=== PATIENT | female | born 2000 | race Asian ===

== ENCOUNTER 2021-11-18 23:08 | Emergency (ER) | payer OTHER, SELFPAY ==
[2021-11-18 23:23] VITALS: BP 93/47; BP 98/50; PULSE 90; PULSE 95; RESP 16; TEMP 36.5; O2SAT 98; O2SAT 99; BMI 21.2
--- NOTE | 2021-11-18 23:39 | ED.ALCOHOL ---
HPI - Alcohol General Chief Complaint: ETOH/Substance Use Stated Complaint: etoh Time Seen by Provider: 11/18/21 23:30 Source: patient Mode of arrival: EMS Limitations: no limitations History of Present Illness HPI narrative: 21-year-old female who presents emergency department for evaluation of altered mental status. The patient apparently was at a dance [employer]. She states she drained a lot of alcohol and took an edible. Apparently she had multiple episodes of vomiting and had a syncopal episode on the dance floor. The patient was then transport to the emergency department by ambulance. At the time of my evaluation, the patient is somnolent but arousable, she does answer questions. She did tell me that she drink alcohol into an edible. She has no other complaints. She denies using any other drugs. Related Data Allergies Allergy/AdvReac Type Severity Reaction Status Date / Time No Known Allergies Allergy Verified 11/18/21 23:31 Review of Systems Review of Systems: Yes all other systems are reviewed and are negative [facility] Past Medical History [facility] Narrative: Past medical history: None. Past surgical history: None. Social history: Patient is a student. She does admit to drinking alcohol and taking edible. She denies any other drug use. Social History Social History Patient : No Physical Exam ED Vital Signs: Vital Signs - 24 hr 11/18/21 23:23 11/19/21 00:29 Temperature 97.7 F 97.9 F Pulse Rate 95 91 Respiratory Rate 16 17 Blood Pressure 93/47 L 92/44 L Pulse Oximetry 98 100 BMI result Body Mass Index 21.2 Const Other: Somnolent but arousable female patient, she does answer questions appropriately, she does not appear to be in distress [facility] Head: Yes normal to inspection, Yes normocephalic and Yes atraumatic Ears: external ears normal General nose exam: Normal external nose present Face and sinus: Yes normal facial exam Mouth: Normal oral and palatal mucosa present Throat: Yes posterior oropharynx normal Eyes General: appearance normal, both eyes and all related structures Pupils: Equal, round and reactive pupils present Neck Neck: Yes normal visual inspection, Yes no lymphadenopathy, Yes trachea midline and Yes supple Chest Chest palpation & inspection: normal inspection of the chest and normal palpation of entire chest wall Resp Effort & Inspection: normal respiratory effort and able to speak in complete sentences Auscultation: clear to auscultation bilaterally Cardio Rate: regular rate Rhythm: regular rhythm Heart sounds: S1 normal heart sound present, S2 normal heart sound present and no murmurs GI Inspection: Yes normal to inspection Palpation (GI): Soft to palpation, nontender and no guarding Auscultation: normal bowel sounds General: Yes no CVA tenderness Back/Spine/Pelvis Back: no CVA tenderness Skin General skin exam: no rashes or lesions noted Neuro Cranial nerves: Yes CN's II-XII intact bilaterally and Yes Equal, round and reactive pupils present Cognition (Neuro): normal cognition Motor exam (neuro): 5/5 motor strength present throughout Extrem General: Yes normal to inspection Psych Other: Somnolent but arousable, Course Course Course Narrative: 21-year-old female who was at a dance democr[employer], she admits to drinking alcohol taking an edible. It was reported that she had a syncopal episode and multiple episodes of vomiting. Vital signs blood pressure 93/47 otherwise unremarkable. O2 saturation was 90% on room air. Physical examination is consistent with intoxication. The patient was placed on a utility worker driver and pulse oximetry monitor. Laboratory evaluation was ordered. Patient was ordered to get normal saline IV x1 L and Zofran 4 mg IV for her nausea and vomiting. Patient will be kept in the emergency department until she is sober. 0154: Laboratory evaluation: Ethanol level was 17, CMP was normal, WBC elevated 13,100, anemia with an H&H of 11.3 and 34. Given these values, her altered mental status is probably more related to the edible marijuana as product that she ingested as opposed to acute alcohol intoxication. At the end of my shift, the patient's care was turned over to my colleague, Dr. Triana. MDM - Alcohol Lab Data Result diagrams: 11/19/21 00:38 11/19/21 00:38 Labs: Lab Results 11/19/21 11/19/21 11/19/21 Range/Units 00:38 00:38 00:38 WBC 13.1 H (4.8-10.8) X10*3/uL RBC 3.73 L (4.20-5.50) X10*6/uL Hgb 11.3 L (12.0-16.0) g/dl Hct 34.1 L (37.0-47.0) % MCV 91.4 (80.0-98.0) fL MCH 30.3 (27.0-33.0) pg MCHC 33.1 (31.0-35.0) g/dl RDW 12.3 (11.0-16.0) % Plt Count 267 (160-400) X10*3/uL MPV 9.5 (9.4-12.3) fL Immature Gran % (Auto) 0.4 (0.0-0.4) % Neut % (Auto) 85.0 H (45-73) % Lymph % (Auto) 8.8 L (20-40) % [place] % (Auto) 5.5 (2-11) % Eos % (Auto) 0.2 (0-4) % Baso % (Auto) 0.1 (0-2) % Lymph # (Auto) 1.2 (1.2-4.9) X10*3/uL [place] # (Auto) 0.7 (0.1-1.2) X10*3/uL Eos # (Auto) 0.0 (0.0-0.4) X10*3/uL Baso # (Auto) 0.0 (0.0-0.2) X10*3/uL Abs Immat Gran (auto) 0.05 H (0.00-0.03) X10*3/uL Absolute Neuts (auto) 11.2 H (2.0-8.3) x10*3/uL Absolute Nucleated RBC 0.000 (0.0-0.012) X10*3/uL Nucleated RBC % (auto) 0.0 (0.0-0.2) /100WBC Sodium 138 (135-145) mmol/L Potassium 3.8 (3.3-5.1) mmol/L Chloride 107 (96-108) mmol/L Carbon Dioxide 25 (22-29) mmol/L Anion Gap 10 L (12-20) BUN 14 (9-16) mg/dL Creatinine 0.80 (0.5-1.4) mg/dL Estim Creat Clear Calc 91.2 Estimated GFR > 60 Random Glucose 112 (60-115) mg/dL Calcium 8.8 (8.4-10.2) mg/dL Total Bilirubin 0.4 (0.0-1.0) mg/dL AST 14 (5-31) U/L ALT < 6 (0-31) U/L Alkaline Phosphatase 53 (39-117) U/L Total Protein 6.4 L (6.5-8.0) g/dL Albumin 4.0 (3.5-5.0) g/dL Lipase 17 (8-78) U/L Ethyl Alcohol 17 mg/dL Discharge Plan Discharge Clinical Impression: Acute alteration in mental status, Alcohol use, Marijuana use Patient Disposition: Still a Patient
[2021-11-18] MEDS: ondansetron HCL 4 MG/2 ML VIAL IVPUSH (23:45)
[2021-11-18] MEDS: 0.9 % Sodium Chloride 1,000 ML 999 ML IV (23:45)
[2021-11-19 00:29] VITALS: BP 92/44; PULSE 91; RESP 17; TEMP 36.6; O2SAT 100
[2021-11-19 00:43] LABS: Basophils Percent Auto 0.1 % (0-2); Eosinophils Percent Auto 0.2 % (0-4); Hematocrit 34.1 % (37.0-47.0); Hemoglobin 11.3 g/dl (12.0-16.0); Imm Gran Abs Auto 0.05 X10*3/uL (0.00-0.03); Imm Gran Pct Auto 0.4 % (0.0-0.4); Lymphocytes Absolute Auto 1.2 X10*3/uL (1.2-4.9); Lymphocytes Percent Auto 8.8 % (20-40); MANUAL DIFF FLAG NO; Mean Corpuscular HGB Conc 33.1 g/dl (31.0-35.0); Mean Corpuscular Hemoglobin 30.3 pg (27.0-33.0); Mean Corpuscular Volume 91.4 fL (80.0-98.0); Mean Platelet Volume 9.5 fL (9.4-12.3); Monocytes Absolute Auto 0.7 X10*3/uL (0.1-1.2); Monocytes Percent Auto 5.5 % (2-11); Neutrophils Absolute Auto 11.2 x10*3/uL (2.0-8.3); Platelet Count 267 X10*3/uL (160-400); Red Blood Count 3.73 X10*6/uL (4.20-5.50); Red Cell Distribution Width 12.3 % (11.0-16.0); White Blood Count 13.1 X10*3/uL (4.8-10.8)
[2021-11-19 00:57] LABS: Ethanol 17 mg/dL
[2021-11-19 01:06] LABS: Alanine Aminotransferase < 6 U/L (0-31); Alkaline Phosphatase 53 U/L (39-117); Anion Gap 10 (12-20); Aspartate Amino Transferase 14 U/L (5-31); Bilirubin Total 0.4 mg/dL (0.0-1.0); Blood Urea Nitrogen 14 mg/dL (9-16); Calcium 8.8 mg/dL (8.4-10.2); Carbon Dioxide 25 mmol/L (22-29); Chloride 107 mmol/L (96-108); Creatinine Clr Calc Pharmacy 91.2; Estimated Glomerular Filt Rate > 60; Glucose Random 112 mg/dL (60-115); Lipase 17 U/L (8-78); Potassium 3.8 mmol/L (3.3-5.1); Sodium 138 mmol/L (135-145); Total Protein 6.4 g/dL (6.5-8.0)
[2021-11-19 02:23] VITALS: BP 99/58; PULSE 79; RESP 16; O2SAT 97
== END 2021-11-19 04:12 | disposition home or self-care (01) ==
LOC: HO.ED 11-19 03:55
PROVIDERS: Emergency Provider Emergency Medicine Emergency Medical Services
DX: R55 Syncope and collapse (principal); R41.82 Altered mental status, unspecified; F10.10 Alcohol abuse, uncomplicated; Y90.0 Blood alcohol level of less than 20 mg/100 ml; F12.10 Cannabis abuse, uncomplicated; Z79.899 Other long term (current) drug therapy
CPT/HCPCS: 36415; 80053; 82077; 83690; 85025; 96361; 96374; 99284; J2405